=== PATIENT | male | born 1960 | race African-American/Black ===

== ENCOUNTER 2016-11-27 10:45 | Emergency (ER) | payer MEDICARE, BC ==
[~2016-11-27 10:45] MED LIST: AMARYL1 MG; AMARYL2 MG; AVAPRO150 MG; AVAPRO300 MG; BACTROBAN22 G1 TP; BISOPROLOL FUMA10 M1 PO; BYSTOLIC PO; BYSTOLIC10 M1 PO; BYSTOLIC10 MG PO; CATAPRES0.1 MG PO; CATAPRES0.3 M1 PO; CELLCEPT250 MG PO; CIPRODEX OTIC7.5 ML OT; COLACE100 M1 PO; COLACE100 MG PO; COZAAR25 M1 PO; DARVOCET-N 1001 EACH PO; DULCOLAX5 MG PO; EPOGEN2000 U/ML SC; EPOGEN4000 UNIT/; FOSRENOL PO; FOSRENOL500 MG PO; FUROSEMIDE40 MG PO; LIPITOR20 MG; LIPITOR40 MG PO; LONITEN2.5 MG PO; LOPRESSOR100 MG PO; LOPRESSOR50 MG PO; LOSARTAN POTAS100 MG PO; MINOXIDIL2.5 M1; MULTIVITAMIN1 TAB; MULTIVITAMIN1 TAB PO; NORCO 5-325 TA1 EACH PO; NORCO 5/325 TAB1 TAB PO; NORCO 5/3251 TAB PO; NORVASC10 MG PO; NORVASC5 M1 PO; NORVASC5 M2 PO; NPLATE SC; PREDNISONE1 MG PO; PREDNISONE5 MG PO; PROGRAF1 MG; PROGRAF1 MG PO; Prednisone PO; RAPAMUNE1 MG; RAPAMUNE2 MG; RENAGEL800 MG PO; RENVELA800 MG PO; RESTORIL15 MG PO; SENNA DOCUSATE; SENSIPAR PO; SENSIPAR60 M1 PO; SENSIPAR60 MG PO; TEKTURNA150 MG PO; TRAMADOL HCL50 MG PO; TYLENOL650 MG PO; ULTRAM50 M1 PO; ULTRAM50 MG PO; VICODIN 5/500 T1 TAB PO; VITAMIN D; VITAMIN D10000 UNIT PO; Vitamin D PO; ZEMPLAR1 MCG PO; ZEMPLAR2 MCG PO; ZESTRIL20 MG PO
== END 2016-11-27 11:10 | disposition other institution (70) ==
LOC: EDMED 10:45
PROC: 05CY3ZZ Extirpation of Matter from Upper Vein, Percutaneous Approach (ICD-10-PCS; principal; 2016-11-27)
DX: T82.868A Thrombosis due to vascular prosthetic devices, implants and grafts, initial encounter (principal)
CPT/HCPCS: C1725; C1757; C1769; C1887; J1644; J1650; Q9967